=== PATIENT | male | born 1990 | race Caucasian/White ===

== ENCOUNTER 2017-03-25 10:53 | Emergency (ER) | payer SELFPAY ==
[~2017-03-25] VITALS: Ht 167.6 cm; Wt 67.0 kg
[2017-03-25 10:58] VITALS: BP 126/75; PULSE 106; RESP 18; TEMP 99.4; O2SAT 97
[2017-03-25] MEDS ORDERED: SODIUM CHLOR 0.9% 1000 ML INJ 1,000 ML IV ONE (11:24)
[2017-03-25 11:28] VITALS: RESP 18; O2SAT 97
[2017-03-25] MEDS ORDERED: SODIUM CHLORIDE 0.9% FLUSH 10 ML FLUSH IVF PRN (11:30)
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
[2017-03-25 11:55] LABS: AUTOMATED NEUTROPHIL # 5.8 TH/MM3 (1.8-7.7); BASOPHIL # 0.1 TH/MM3 (0-0.2); BASOPHIL % 0.6 % (0.0-2.0); EOSINOPHIL # 0.2 TH/MM3 (0-0.4); EOSINOPHIL % 1.7 % (0.0-4.0); HEMATOCRIT 37.4 % (39.0-51.0); HEMO FLAGS DIFF FINAL; LYMPH % 24.6 % (9.0-44.0); LYMPHOCYTE # 2.3 TH/MM3 (1.0-4.8); MEAN CELL VOLUME 84.9 FL (80.0-100.0); MEAN CORPUSCULAR HEMOGLOBIN 29.3 PG (27.0-34.0); MEAN CORPUSCULAR HGB CONC 34.5 % (32.0-36.0); MONO % 10.3 % (0.0-8.0); NEUT % 62.8 % (16.0-70.0); PLATELET COUNT 315 TH/MM3 (150-450); RED CELL DISTRIBUTION WIDTH 13.1 % (11.6-17.2); WHITE BLOOD COUNT 9.2 TH/MM3 (4.0-11.0)
[2017-03-25 12:11] LABS: ANION GAP 7 MEQ/L (5-15)
[2017-03-25 12:14] LABS: ACETAMINOPHEN LESS THAN 2.0 MCG/ML (10.0-30.0); ALKALINE PHOSPHATASE 103 U/L (45-117); ALT (GPT) 37 U/L (12-78); AST (GOT) 44 U/L (15-37); BLOOD UREA NITROGEN 17 MG/DL (7-18); CHLORIDE 105 MEQ/L (98-107); CREATINE KINASE 263 U/L (39-308); GLOMERULAR FILTRATION RATE 88 ML/MIN (>89); SODIUM (NA) 139 MEQ/L (136-145); TOTAL BILIRUBIN ADULT 0.5 MG/DL (0.2-1.0)
[2017-03-25 12:57] VITALS: BP 128/81; TEMP 98
--- NOTE | 2017-03-26 16:41 | EKG ---
Date Performed: 03/25/2017 Time Performed: 11:57:26 PTAGE: 26 years EKG: Sinus rhythm NONSPECIFIC ST & T-WAVE ABNORMALITY When compared to previous tracing, nonspecific ST-T changes Are now present in the anterior leads. BORDERLINE ECG PREVIOUS TRACING : 04/27/2016 16.30 DOCTOR: Brayden Malcolm Interpretating Date/Time 03/26/2017 16:39:59
== END 2017-03-25 12:57 | disposition home or self-care (01) ==
LOC: NEPC 10:53
DX: F19.10 Other psychoactive substance abuse, uncomplicated (principal); T40.601A Poisoning by unspecified narcotics, accidental (unintentional), initial encounter; R61 Generalized hyperhidrosis; R94.31 Abnormal electrocardiogram [ECG] [EKG]; F17.200 Nicotine dependence, unspecified, uncomplicated
CPT/HCPCS: 80053; 80307; 82550; 85025; 93005; 96360; 99284; J7030

== ENCOUNTER 2017-03-29 02:49 | Emergency (ER) | payer SELFPAY ==
[~2017-03-29] VITALS: Ht 167.6 cm; Wt 67.0 kg
[2017-03-29 02:52] VITALS: BP 131/73; PULSE 80; RESP 16; TEMP 98.7; O2SAT 98
--- NOTE | 2017-03-29 04:05 | PD ---
HPI Chief Complaint: Skin Problem Time Seen by Provider: 03:44 Travel History International Travel<30 days: No Contact w/Intl Traveler<30days: No Traveled to known affect area: No History of Present Illness HPI The patient is a 26-year-old male who presents emergency department for IV drug abuse. The patient states he injected heroin into the right antecubital fossa earlier today and then developed a red streak going up his vein, initially was slightly pruritic and painful, and resolved. The patient last used heroin 2 hours ago. He now notes he is asymptomatic. The patient is right-hand dominant. He denies any fever. Symptoms are mild, exacerbated by using heroin, and self alleviating. PFSH Past Medical History Medical History: Denies Significant Hx Hx Anticoagulant Therapy: No Cardiovascular Problems: No Chemotherapy: No Cerebrovascular Accident: No Diabetes: No Diminished Hearing: No Respiratory: No Past Surgical History Surgical History: No Previous Surgery Other Surgery: Yes (CYST REMOVAL ) Social History Alcohol Use: Yes (RARE) Tobacco Use: Yes (1PPD) Substance Use: Yes (COCAINE, DILAUDID, METH, HEROIN) Allergies-Medications (Allergen,Severity, Reaction): Coded Allergies: No Known Allergies (Unverified , 03/29/17) Reported Meds & Prescriptions Reported Meds & Active Scripts Active No Active Prescriptions or Reported Medications Review of Systems General / Constitutional: No: Fever Cardiovascular: No: Chest Pain or Discomfort Respiratory: No: Shortness of Breath Gastrointestinal: No: Nausea, Vomiting, Abdominal Pain Skin: Positive Other (as noted in the history of present illness) Psychiatric: Positive: Substance Abuse (IVDA with heroin) Physical Exam Narrative GENERAL: Awake, 26-year-old male who appears his stated age and is in no acute respiratory distress. SKIN: Focused skin assessment warm/dry. Multiple injection sites noted of the right anterior cubital fossa. No significant erythema noted. HEAD: Atraumatic. Normocephalic. MUSCULOSKELETAL: No obvious deformities. No clubbing. No cyanosis. No edema. Multiple injection sites noted of the right antecubital fossa, no significant erythema or palpable abscesses noted. NEUROLOGICAL: Awake and alert. No obvious cranial nerve deficits. Motor grossly within normal limits. Normal speech. PSYCHIATRIC: Appropriate mood and affect; insight and judgment normal. Data Data Last Documented VS Vital Signs Date Time Temp Pulse Resp B/P Pulse Ox O2 Delivery O2 Flow Rate FiO2 03/29/17 03:51 18 03/29/17 02:52 98.7 80 131/73 98 Room Air MDM Medical Decision Making Medical Screen Exam Complete: Yes Emergency Medical Condition: Yes Medical Record Reviewed: Yes Differential Diagnosis Differential diagnosis includes IVDA, polysubstance abuse, heroin reaction, reaction to unknown substance. Narrative Course The patient last injected 2 hours prior to arrival, his symptoms have resolved. The patient is advised to stop using IV drugs. Diagnosis Primary Impression: Polysubstance abuse Patient Instructions: General Instructions Additional Instructions: Stop using heroin. Monitor for signs of infection. Follow-up with your primary physician. Med/Other Pt SpecificInfo: No Change to Meds Scripts No Active Prescriptions or Reported Meds Disposition: 01 DISCHARGE HOME Condition: Stable Nicho Morocho MD March 29, 2017 04:05
== END 2017-03-29 04:54 | disposition home or self-care (01) ==
LOC: NEPC 02:49
DX: F19.10 Other psychoactive substance abuse, uncomplicated (principal); F17.200 Nicotine dependence, unspecified, uncomplicated
CPT/HCPCS: 99281

== ENCOUNTER 2017-04-30 12:43 | Inpatient (IN) | payer OTHER ==
[~2017-04-30] VITALS: Ht 175.3 cm; Wt 66.8 kg
[2017-04-30 13:46] VITALS: BP 132/78; PULSE 100; RESP 22; TEMP 98.3; O2SAT 98
[2017-04-30] MEDS ORDERED: SODIUM CHLORIDE 0.9% FLUSH 10 ML FLUSH IVF PRN ×2 (14:00→15:30)
[2017-04-30] MEDS ORDERED: SODIUM CHLOR 0.9% 1000 ML INJ 1,000 ML IV ONE ×2 (14:00→16:00)
[2017-04-30 14:18] LABS: AUTOMATED NEUTROPHIL # 14.8 TH/MM3 (1.8-7.7); BASOPHIL # 0.1 TH/MM3 (0-0.2); BASOPHIL % 0.4 % (0.0-2.0); EOSINOPHIL % 0.2 % (0.0-4.0); HEMATOCRIT 39.6 % (39.0-51.0); HEMO FLAGS DIFF FINAL; MEAN CELL VOLUME 84.9 FL (80.0-100.0); MEAN CORPUSCULAR HEMOGLOBIN 28.7 PG (27.0-34.0); MEAN CORPUSCULAR HGB CONC 33.9 % (32.0-36.0); MONO % 8.1 % (0.0-8.0); NEUT % 80.3 % (16.0-70.0); PLATELET COUNT 360 TH/MM3 (150-450); RED BLOOD COUNT 4.67 MIL/MM3 (4.50-5.90); WHITE BLOOD COUNT 18.4 TH/MM3 (4.0-11.0)
[2017-04-30 14:23] VITALS: O2SAT 98
[2017-04-30 14:24] LABS: PROTHROMBIN TIME - PATIENT 11.6 SEC (9.8-11.6)
[2017-04-30 14:31] LABS: ANION GAP 10 MEQ/L (5-15); AST (GOT) 48 U/L (15-37); BICARBONATE 22.6 MEQ/L (21.0-32.0); BLOOD UREA NITROGEN 21 MG/DL (7-18); CHLORIDE 109 MEQ/L (98-107); GLOMERULAR FILTRATION RATE 66 ML/MIN (>89); POTASSIUM 3.7 MEQ/L (3.5-5.1); SODIUM (NA) 142 MEQ/L (136-145)
[2017-04-30 14:35] LABS: ALKALINE PHOSPHATASE 110 U/L (45-117); ALT (GPT) 42 U/L (12-78)
--- NOTE | 2017-04-30 14:38 | PD ---
HPI Chief Complaint: Pain: Acute or Chronic Time Seen by Provider: 13:48 Travel History International Travel<30 days: No Contact w/Intl Traveler<30days: No Traveled to known affect area: No History of Present Illness HPI 26-year-old male presents with chest pain after injecting heroin, snorting crack and doing some lines of meth. He is currently under arrest. He denies other complaints but is a very poor historian to get history out of. He states that he injects every day. He states he did all the drugs he mentioned this morning. PFSH Past Medical History Hx Anticoagulant Therapy: No Cardiovascular Problems: No Chemotherapy: No Cerebrovascular Accident: No Diabetes: No Diminished Hearing: No Respiratory: No Past Surgical History Other Surgery: Yes (CYST REMOVAL ) Social History Alcohol Use: Yes (RARE) Tobacco Use: Yes (1PPD) Substance Use: Yes (COCAINE, DILAUDID, METH, HEROIN) Allergies-Medications (Allergen,Severity, Reaction): Coded Allergies: No Known Allergies (Unverified , 03/29/17) Reported Meds & Prescriptions Reported Meds & Active Scripts Active No Active Prescriptions or Reported Medications Review of Systems ROS Limitations: Poor Historian Except as stated in HPI: all other systems reviewed are Neg Physical Exam Exam Limitations: Poor Historian Narrative GENERAL: Well-nourished, well-developed patient. SKIN: Warm and dry. Multiple track camarena noted HEAD: Normocephalic and atraumatic. EYES: No injection or drainage. Dilated pupils equal bilaterally ENT: No nasal drainage noted. NECK: Supple, trachea midline. CARDIOVASCULAR: Regular rate and rhythm RESPIRATORY: Breath sounds equal bilaterally. No accessory muscle use. GASTROINTESTINAL: Abdomen soft, non-tender, nondistended. EXTREMITIES: No edema. NEUROLOGICAL: Awake. Moves all extremities. Normal speech. Data Data Last Documented VS Vital Signs Date Time Temp Pulse Resp B/P Pulse Ox O2 Delivery O2 Flow Rate FiO2 04/30/17 14:23 98 04/30/17 13:54 100 04/30/17 13:46 98.3 22 132/78 Orders Electrocardiogram (04/30/17 13:55) Complete Blood Count With Diff (04/30/17 13:55) Comprehensive Metabolic Panel (04/30/17 13:55) Prothrombin Time / Inr (Pt) (04/30/17 13:55) Act Partial Throm Time (Ptt) (04/30/17 13:55) Ua Includes Microscopic (04/30/17 13:55) Chest, Single Ap (04/30/17 13:55) Iv Access Insert/Monitor (04/30/17 13:55) Ecg Monitoring (04/30/17 13:55) Oximetry (04/30/17 13:55) Sodium Chloride 0.9% Flush (Ns Flush) (04/30/17 14:00) Drug Screen, Random Urine (04/30/17 13:55) Alcohol (Ethanol) (04/30/17 13:55) Lactic Acid Sepsis Protocol (04/30/17 13:55) Blood Culture (04/30/17 13:55) Sodium Chlor 0.9% 1000 Ml Inj (Ns 1000 M (04/30/17 14:00) Ckmb (Isoenzyme) Profile (04/30/17 15:30) Troponin I (04/30/17 15:30) Sodium Chloride 0.9% Flush (Ns Flush) (04/30/17 15:30) Diet Regular Basic (04/30/17 Dinner) Vital Signs (Adult) TREASURE.Q4H (04/30/17 15:51) Complete Blood Count With Diff (05/01/17 06:00) Basic Metabolic Panel (Bmp) (05/01/17 06:00) Sodium Chlor 0.9% 1000 Ml Inj (Ns 1000 M (04/30/17 16:00) Ondansetron Inj (Zofran Inj) (04/30/17 16:00) Acetaminophen (Tylenol) (04/30/17 16:00) Troponin I (04/30/17 21:00) Troponin I (05/01/17 03:00) Sodium Chlor 0.9% 1000 Ml Inj (Ns 1000 M (04/30/17 16:00) Vancomycin Inj (Vancomycin Inj) (04/30/17 16:00) Admit Order (Ed Use Only) (04/30/17 15:54) CKMB (04/30/17 14:00) CKMB% (04/30/17 14:00) Labs Laboratory Tests Test 04/30/17 14:00 White Blood Count 18.4 TH/MM3 Red Blood Count 4.67 MIL/MM3 Hemoglobin 13.4 GM/DL Hematocrit 39.6 % Mean Corpuscular Volume 84.9 FL Mean Corpuscular Hemoglobin 28.7 PG Mean Corpuscular Hemoglobin 33.9 % Concent Red Cell Distribution Width 13.0 % Platelet Count 360 TH/MM3 Mean Platelet Volume 7.4 FL Neutrophils (%) (Auto) 80.3 % Lymphocytes (%) (Auto) 11.0 % Monocytes (%) (Auto) 8.1 % Eosinophils (%) (Auto) 0.2 % Basophils (%) (Auto) 0.4 % Neutrophils # (Auto) 14.8 TH/MM3 Lymphocytes # (Auto) 2.0 TH/MM3 Monocytes # (Auto) 1.5 TH/MM3 Eosinophils # (Auto) 0.0 TH/MM3 Basophils # (Auto) 0.1 TH/MM3 CBC Comment DIFF FINAL Differential Comment Prothrombin Time 11.6 SEC Prothromb Time International 1.0 RATIO Ratio Activated Partial 25.0 SEC Thromboplast Time Sodium Level 142 MEQ/L Potassium Level 3.7 MEQ/L Chloride Level 109 MEQ/L Carbon Dioxide Level 22.6 MEQ/L Anion Gap 10 MEQ/L Blood Urea Nitrogen 21 MG/DL Creatinine 1.31 MG/DL Estimat Glomerular Filtration 66 ML/MIN Rate Random Glucose 98 MG/DL Lactic Acid Level 1.1 mmol/L Calcium Level 10.0 MG/DL Total Bilirubin 1.0 MG/DL Aspartate Amino Transf 48 U/L (AST/SGOT) Alanine Aminotransferase 42 U/L (ALT/SGPT) Alkaline Phosphatase 110 U/L Total Creatine Kinase 202 U/L Creatine Kinase MB 2.6 NG/ML Troponin I LESS THAN 0.02 NG/ML Total Protein 9.0 GM/DL Albumin 4.0 GM/DL Ethyl Alcohol Level LESS THAN 3 MG/DL MDM Medical Decision Making Medical Screen Exam Complete: Yes Emergency Medical Condition: Yes Medical Record Reviewed: Yes (past history confirmed) Interpretation(s) EKG is sinus rhythm at 100, no STEMI criteria CBC & BMP Diagram 04/30/17 14:00 Last 24 hours Impressions Chest X-Ray 04/30/17 3155 Signed Impressions: Service Date/Time: Wednesday, April 30, 2017 14:00 - CONCLUSION: No acute disease. Camden Koch MD Differential Diagnosis Endocarditis, vasospasm, musculoskeletal, gastritis... Narrative Course Will check blood work, chest x-ray and reevaluate Blood work shows elevated white count of 18 and considering history of IV drug abuse Will give dose of vancomycin and place in the hospital for further workup of endocarditis. Physician Communication Physician Communication dr kelley agrees to admit Diagnosis Primary Impression: Chest pain Qualified Code: R07.9 - Chest pain, unspecified type Additional Impression: Polysubstance abuse Admitting Information Admitting Physician Requests: Admit Scripts No Active Prescriptions or Reported Meds Susie Felipe MD Apr 30, 2017 14:38
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
[2017-04-30] MEDS ORDERED: ONDANSETRON HCL 4 MG/2 ML VIAL IV PUSH PRN (16:00)
[2017-04-30] MEDS ORDERED: ACETAMINOPHEN 325 MG TAB PO PRN (16:00)
[2017-04-30] MEDS ORDERED: VANCOMYCIN INJ 1,000 MG in SODIUM CHLOR 0.9% 250 ML INJ 250 ML IV ONE (16:00)
[2017-04-30 16:14] LABS: CREATINE KINASE 202 U/L (39-308)
[2017-04-30] MEDS ORDERED: Vancomycin Consult Pharmacy 1 EA OTHER SCH (16:15)
--- NOTE | 2017-04-30 16:16 | HHI.HP ---
[facility] No Primary Care Physician Admission Diagnosis chest pain Diagnoses: (1) Chest pain Diagnosis: Principal (2) SIRS (systemic inflammatory response syndrome) Diagnosis: Principal (3) Drug abuse Diagnosis: Principal Chief Complaint: chest pain Travel History International Travel<30 Days: No Contact w/Intl Traveler <30 Da: No Traveled to Known Affected Are: No History of Present Illness patient is a 26 y/o male who was brought to ER with chest pain. reportedly he injected heroin and snorted crack earlier and started to have some chest pain. he's currently under arrest. he was somewhat lethargic at the time of my evaluation although arousable. he denies any chest pain at this time. information was limited due to his mental condition. Review of Systems ROS Limitations: Intoxication, Poor Historian Cardiovascular: COMPLAINS OF: Chest pain Past Family Social History Past Medical History not known Past Surgical History could not be obtained. Reported Medications none reported. Allergies: Coded Allergies: No Known Allergies (Unverified , 03/29/17) Active Ordered Medications Current Medications Sodium Chloride 2 ml 2 ml UNSCH PRN IVF FLUSH AFTER USING IV ACCESS; Start at 14:00 Sodium Chloride (NS 1000 ml Inj) 1,000 ml @ 999 mls/hr BOLUS ONCE IV Last administered on 04/30/17t 14:13; Start 04/30/17 at 14:00; Stop 04/30/17 at 15:00 ; Status DC Sodium Chloride 2 ml 2 ml UNSCH PRN IVF FLUSH AFTER USING IV ACCESS; Start at 15:30 Sodium Chloride (NS 1000 ml Inj) 1,000 ml @ 100 mls/hr Q10H IV ; Start at 16:00; Status UNV Ondansetron HCl (Zofran Inj) 4 mg Q8HR PRN IV PUSH NAUSEA; Start 04/30/17 at 16 :00; Status UNV Acetaminophen 650 mg 650 mg Q4H PRN PO FEVER/PAIN; Start 04/30/17 at 16:00; Status UNV Sodium Chloride 1,000 ml @ 999 mls/hr BOLUS ONCE IV ; Start 04/30/17 at 16:00 ; Stop 04/30/17 at 17:00 Vancomycin HCl/ Sodium Chloride (Vancomycin Inj/ NS 250 ml Inj) 250 ml @ 250 mls/hr ONCE ONCE IV ; Start 04/30/17 at 16:00; Stop 04/30/17 at 16:59 Family History could not be obtained. Social History smokes a pack a day- uses IV drugs. Physical Exam Vital Signs Vital Signs Date Time Temp Pulse Resp B/P Pulse Ox O2 Delivery O2 Flow Rate FiO2 04/30/17 14:23 98 04/30/17 13:54 100 04/30/17 13:46 98.3 100 22 132/78 98 Physical Exam GENERAL: This is a well-nourished, well-developed patient, in no apparent distress. SKIN: No rashes, ecchymoses or lesions. Cool and dry. HEAD: Atraumatic. Normocephalic. No temporal or scalp tenderness. EYES: Pupils equal round and reactive. Extraocular motions intact. No scleral icterus. No injection or drainage. ENT: Nose without bleeding, purulent drainage or septal hematoma. Throat without erythema, tonsillar hypertrophy or exudate. Uvula midline. Airway patent. NECK: Trachea midline. No JVD or lymphadenopathy. Supple, nontender, no meningeal signs. CARDIOVASCULAR: Regular rate and rhythm without murmurs, gallops, or rubs. RESPIRATORY: Clear to auscultation. Breath sounds equal bilaterally. No wheezes , rales, or rhonchi. GASTROINTESTINAL: Abdomen soft, non-tender, nondistended. No hepato-splenomegaly , or palpable masses. No guarding. MUSCULOSKELETAL: Extremities without clubbing, cyanosis, or edema. No joint tenderness, effusion, or edema noted. No calf tenderness. Negative Homans sign bilaterally. NEUROLOGICAL: lethargic- however arousable. Laboratory Laboratory Tests Test 04/30/17 14:00 White Blood Count 18.4 Red Blood Count 4.67 Hemoglobin 13.4 Hematocrit 39.6 Mean Corpuscular Volume 84.9 Mean Corpuscular Hemoglobin 28.7 Mean Corpuscular Hemoglobin 33.9 Concent Red Cell Distribution Width 13.0 Platelet Count 360 Mean Platelet Volume 7.4 Neutrophils (%) (Auto) 80.3 Lymphocytes (%) (Auto) 11.0 Monocytes (%) (Auto) 8.1 Eosinophils (%) (Auto) 0.2 Basophils (%) (Auto) 0.4 Neutrophils # (Auto) 14.8 Lymphocytes # (Auto) 2.0 Monocytes # (Auto) 1.5 Eosinophils # (Auto) 0.0 Basophils # (Auto) 0.1 CBC Comment DIFF FINAL Differential Comment Prothrombin Time 11.6 Prothromb Time International 1.0 Ratio Activated Partial 25.0 Thromboplast Time Sodium Level 142 Potassium Level 3.7 Chloride Level 109 Carbon Dioxide Level 22.6 Anion Gap 10 Blood Urea Nitrogen 21 Creatinine 1.31 Estimat Glomerular Filtration 66 Rate Random Glucose 98 Lactic Acid Level 1.1 Calcium Level 10.0 Total Bilirubin 1.0 Aspartate Amino Transf 48 (AST/SGOT) Alanine Aminotransferase 42 (ALT/SGPT) Alkaline Phosphatase 110 Total Protein 9.0 Albumin 4.0 Ethyl Alcohol Level LESS THAN 3 Date/Time Procedure Status Source Growth 04/30/17 14:00 Aerobic Blood Culture Received Blood Peripheral Pending 04/30/17 14:00 Anaerobic Blood Culture Received Blood Peripheral Pending Result Diagram: 04/30/17 1400 04/30/17 1400 Imaging Last Impressions Chest X-Ray 04/30/17 1355 Signed Impressions: Service Date/Time: Sunday, April 30, 2017 14:00 - CONCLUSION: No acute disease. Camden Koch MD CXR; sinus rhythm with no acute ST-T changes Assessment and Plan Assessment and Plan A/P - chest pain with drug abuse will trend the cardiac enzymes- place on telemetry -SIRS with history of IV drug abuse start empiric broad spectrum IV antibiotics in light of IV drug abuse will follow the blood cultures and check ESR. -acute kidney injury; start IV fluid and monitor the renal function; BMP in am Discussed Condition With ER physician and the patient. Physician Certification 2 Midnight Certification Type: Admission for Inpatient Services Order for Inpatient Services The services are ordered in accordance with Medicare regulations or non- Medicare payer requirements, as applicable. In the case of services not specified as inpatient-only, they are appropriately provided as inpatient services in accordance with the 2-midnight benchmark. Estimated LOS (days): 2 days is the estimated time the patient will need to remain in the hospital, assuming treatment plan goals are met and no additional complications. Post-Hospital Plan: Not yet determined Problem Qualifiers (1) Chest pain: Qualified Code: R07.9 - Chest pain, unspecified type Carlos Alejo MD Apr 30, 2017 16:16
[2017-04-30 16:37] LABS: CKMB 2.6 NG/ML (0.5-3.6)
[2017-04-30] MEDS: SODIUM CHLOR 0.9% 1000 ML INJ 1,000 ML IV SCH (17:51)
--- NOTE | 2017-04-30 17:58 | EKG ---
Date Performed: 04/30/2017 Time Performed: 14:01:53 PTAGE: 26 years EKG: Sinus rhythm MINIMAL VOLTAGE CRITERIA FOR LVH, CONSIDER NORMAL VARIANT NONSPECIFIC T-WAVE ABNORMALITY BORDERLINE ECG INTERPRETATION BASED ON A DEFAULT AGE OF 40 YEARS NO PREVIOUS TRACING DOCTOR: Matteo Rizo Interpretating Date/Time 04/30/2017 17:56:26
[2017-04-30] MEDS: PIPERACIL-TAZO 3.375 GM PREMIX 50 ML IV SCH (18:03)
[2017-04-30 18:48] VITALS: BP 132/75; PULSE 58; RESP 20
[2017-04-30 19:07] VITALS: BP 105/61; PULSE 66; RESP 18; O2SAT 100
[2017-04-30 21:18] VITALS: BP 124/62; PULSE 68; RESP 16; TEMP 98.1; O2SAT 95
[2017-04-30 23:01] LABS: AMPHETAMINE, URINE POS (NEG); BARBITURATES, URINE NEG (NEG); COCAINE, URINE POS (NEG)
[2017-04-30 23:08] LABS: BACTERIA, URINE RARE /hpf; BLOOD, URINE NEG (NEG); GLUCOSE,URINE NEG (NEG); HYALINE CAST, URINE 11 /lpf (RARE); KETONE, URINE NEG (NEG); MUCUS URINE FEW /lpf (OCC); NITRITE,URINE NEG (NEG); PH, URINE 6.5 (5.0-8.5); SQUAMOUS EPITHELIAL CELL URINE <1 /hpf (0-5); URINE COLOR YELLOW (YELLW/STRAW)
[2017-05-01] VITALS: BP 122/68; PULSE 63; RESP 18; TEMP 98.4; O2SAT 98
[2017-05-01] MEDS: SODIUM CHLOR 0.9% 1000 ML INJ 1,000 ML IV SCH ×3 (02:00→22:00)
[2017-05-01] MEDS: PIPERACIL-TAZO 3.375 GM PREMIX 50 ML IV SCH ×3 (02:38→18:11)
[2017-05-01 03:22] LABS: AUTOMATED NEUTROPHIL # 9.4 TH/MM3 (1.8-7.7); BASOPHIL % 0.3 % (0.0-2.0); EOSINOPHIL # 0.2 TH/MM3 (0-0.4); EOSINOPHIL % 1.5 % (0.0-4.0); HEMATOCRIT 35.2 % (39.0-51.0); HEMO FLAGS DIFF FINAL; LYMPHOCYTE # 1.7 TH/MM3 (1.0-4.8); MEAN CELL VOLUME 86.6 FL (80.0-100.0); MEAN CORPUSCULAR HEMOGLOBIN 28.6 PG (27.0-34.0); MEAN CORPUSCULAR HGB CONC 33.1 % (32.0-36.0); MONO % 11.5 % (0.0-8.0); NEUT % 73.7 % (16.0-70.0); PLATELET COUNT 268 TH/MM3 (150-450); RED BLOOD COUNT 4.07 MIL/MM3 (4.50-5.90); WHITE BLOOD COUNT 12.8 TH/MM3 (4.0-11.0)
[2017-05-01 03:27] LABS: ANION GAP 6 MEQ/L (5-15); BICARBONATE 26.2 MEQ/L (21.0-32.0); BLOOD UREA NITROGEN 15 MG/DL (7-18); CHLORIDE 110 MEQ/L (98-107); GLOMERULAR FILTRATION RATE 108 ML/MIN (>89); POTASSIUM 3.7 MEQ/L (3.5-5.1); SODIUM (NA) 142 MEQ/L (136-145)
[2017-05-01 04:00] VITALS: BP 120/74; PULSE 58; RESP 16; TEMP 98; O2SAT 98
[2017-05-01] MEDS: VANCOMYCIN 1,000 MG/NS 250 ML IV SCH ×4 (04:33→16:59)
[2017-05-01 08:00] VITALS: BP 130/60; PULSE 72; RESP 20; TEMP 98.3; O2SAT 96
--- NOTE | 2017-05-01 11:08 | HHI.PR ---
Subjective Remarks awake and alert today. looks a bit anxious. complaining of some chest pressure. afebrile. Objective Vitals Vital Signs Date Time Temp Pulse Resp B/P Pulse Ox O2 Delivery O2 Flow Rate FiO2 05/01/17 08:00 98.3 72 20 130/60 96 05/01/17 04:00 98.0 58 16 120/74 98 05/01/17 00:00 98.4 63 18 122/68 98 05/01/17 00:00 Room Air 04/30/17 21:18 98.1 68 16 124/62 95 04/30/17 20:00 Room Air 04/30/17 19:07 66 18 105/61 100 Room Air 04/30/17 18:48 58 20 132/75 04/30/17 14:23 98 04/30/17 13:54 100 04/30/17 13:46 98.3 100 22 132/78 98 I/O 04/30/17 04/30/17 04/30/17 05/01/17 05/01/17 05/01/17 07:00 15:00 23:00 07:00 15:00 23:00 Intake Total 1049 ml 883 ml Output Total 450 ml 300 ml Balance 599 ml 583 ml Intake Oral 600 ml 360 ml IV Total 449 ml 523 ml Output Urine Total 450 ml 300 ml # Voids 1 # Bowel Movements 0 Result Diagram: 05/01/17 0242 05/01/17 0242 Imaging Last Impressions Chest X-Ray 04/30/17 1355 Signed Impressions: Service Date/Time: Sunday, April 30, 2017 14:00 - CONCLUSION: No acute disease. Camden Koch MD Objective Remarks GENERAL: This is a well-nourished, well-developed patient, in no apparent distress. CARDIOVASCULAR: Regular rate and regular rhythm without murmurs, gallops, or rubs. RESPIRATORY: Clear to auscultation. Breath sounds equal bilaterally. No wheezes , rales, or rhonchi. GASTROINTESTINAL: Abdomen soft, non-tender, nondistended. Normal, active bowel sounds MUSCULOSKELETAL: Extremities without clubbing, cyanosis, or edema. NEURO: Alert & Oriented x4 to person, place, time, situation. Moves all ext x4 Procedures none Medications and IVs Current Medications Sodium Chloride 2 ml 2 ml UNSCH PRN IVF FLUSH AFTER USING IV ACCESS; Start at 14:00 Sodium Chloride (NS 1000 ml Inj) 1,000 ml @ 999 mls/hr BOLUS ONCE IV Last administered on 04/30/17 14:13; Start 04/30/17 at 14:00; Stop 04/30/17 at 15:00 ; Status DC Sodium Chloride 2 ml 2 ml UNSCH PRN IVF FLUSH AFTER USING IV ACCESS; Start at 15:30 Sodium Chloride (NS 1000 ml Inj) 1,000 ml @ 100 mls/hr Q10H IV Last administered on 04/30/17 17:51; Start 04/30/17 at 16:00 Ondansetron HCl (Zofran Inj) 4 mg Q8HR PRN IV PUSH NAUSEA; Start 04/30/17 at 16 :00 Acetaminophen 650 mg 650 mg Q4H PRN PO FEVER/PAIN 1-2; Start 04/30/17 at 16:00 Sodium Chloride 1,000 ml @ 999 mls/hr BOLUS ONCE IV Last administered on 04/30 16:14; Start 04/30/17 at 16:00; Stop 04/30/17 at 17:00; Status DC Vancomycin HCl 1000 mg/Sodium Chloride 250 ml @ 250 mls/hr ONCE ONCE IV Last administered on 04/30/17 16:14; Start 04/30/17 at 16:00; Stop 04/30/17 at 16:59 ; Status DC Pharmacy Profile Note 0 ml @ 0 mls/hr UNSCH OTHER ; Start 04/30/17 at 16:15 Piperacillin Sod/ Tazobactam Sod 50 ml @ 100 mls/hr Q8H IV Last administered on 05/01/17 09:35; Start 04/30/17 at 18:00 Vancomycin HCl/ Sodium Chloride (Vancomycin Inj/ NS 250 ml Inj) 250 ml @ 250 mls/hr Q12H IV Last administered on 05/01/17 04:33; Start 05/01/17 at 04:00 Miscellaneous Information SPECIFIC LAB TO BE ... ONCE ONCE .XX ; Start at 03:45; Stop 05/02/17 at 03:46 A/P Assessment and Plan A/P - chest pain with drug abuse cardiac enzymes negative -SIRS with history of IV drug abuse/ bacteremia with gram positive cocci continue empiric broad spectrum IV antibiotics ID consulted. -acute kidney injury; resolved. -polysubstance abuse- will watch for withdrawal- consider adding Clonidine Carlos Alejo MD May 01, 2017 11:08
[2017-05-01 12:00] VITALS: BP 120/60; PULSE 80; RESP 20; TEMP 98.3; O2SAT 100
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
[2017-05-01 16:00] VITALS: BP 125/57; PULSE 82; RESP 20; TEMP 97.9; O2SAT 100
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
[2017-05-01 20:00] VITALS: BP 129/63; PULSE 68; RESP 18; TEMP 97.7; O2SAT 99
[2017-05-01] MEDS ORDERED: DIATRIZOATE MEGLUM/DIATRIZOATE SOD 9 ML CUP PO ONE (20:30)
[2017-05-02] VITALS (8 sets, daily range): BP systolic 105–124; BP diastolic 56–65; PULSE 50–87; RESP 16–18; TEMP 97.6–98.8; O2SAT 97–100
[2017-05-02] MEDS: PIPERACIL-TAZO 3.375 GM PREMIX 50 ML IV SCH ×3 (01:12→17:32)
[2017-05-02] MEDS ORDERED: PHARMACY ORDERED LAB ONE (03:45)
[2017-05-02] MEDS: VANCOMYCIN 1,000 MG/NS 250 ML IV SCH ×2 (04:00)
[2017-05-02] MEDS ORDERED: DIATRIZOATE MEGLUM/DIATRIZOATE SOD 9 ML CUP PO ONE (08:30)
[2017-05-02] MEDS: SODIUM CHLOR 0.9% 1000 ML INJ 1,000 ML IV SCH (08:30)
[2017-05-02] MEDS ORDERED: IOHEXOL 350 MG/ML 10 ML VIAL (for RAD DIAG) IV ONE (10:59)
--- NOTE | 2017-05-02 11:03 | HHI.PR ---
Subjective Remarks in no acute distress. no fever. has mild pain to the right knee. Objective Vitals Vital Signs Date Time Temp Pulse Resp B/P Pulse Ox O2 Delivery O2 Flow Rate FiO2 05/02/17 08:00 97.9 73 18 118/63 98 05/02/17 08:00 50 05/02/17 07:15 Room Air 05/02/17 04:00 97.6 69 16 105/59 97 05/02/17 00:00 97.7 65 16 124/56 97 05/01/17 20:00 68 05/01/17 20:00 97.7 68 18 129/63 99 05/01/17 20:00 Room Air 05/01/17 16:00 97.9 82 20 125/57 100 05/01/17 16:00 Room Air 05/01/17 12:00 Room Air 05/01/17 12:00 98.3 80 20 120/60 100 I/O 05/01/17 05/01/17 05/01/17 05/02/17 05/02/17 05/02/17 07:00 15:00 23:00 07:00 15:00 23:00 Intake Total 883 ml 1786 ml 240 ml 1151 ml Output Total 300 ml 1100 ml 250 ml 800 ml Balance 583 ml 686 ml -10 ml 351 ml Intake Oral 360 ml 840 ml 240 ml 240 ml IV Total 523 ml 946 ml 911 ml Output Urine Total 300 ml 1100 ml 250 ml 800 ml # Voids 1 # Bowel Movements 0 0 0 Result Diagram: 05/01/17 0242 05/01/17 0242 Imaging Last Impressions Knee X-Ray 05/01/17 0000 Signed Impressions: Service Date/Time: Monday, May 01, 2017 15:55 - CONCLUSION: Mild effusion. Fredsi Watson MD Chest X-Ray 04/30/17 1355 Signed Impressions: Service Date/Time: Sunday, April 30, 2017 14:00 - CONCLUSION: No acute disease. Camden Koch MD Objective Remarks GENERAL: This is a well-nourished, well-developed patient, in no apparent distress. CARDIOVASCULAR: Regular rate and regular rhythm without murmurs, gallops, or rubs. RESPIRATORY: Clear to auscultation. Breath sounds equal bilaterally. No wheezes , rales, or rhonchi. GASTROINTESTINAL: Abdomen soft, non-tender, nondistended. Normal, active bowel sounds MUSCULOSKELETAL: mild swelling of the right knee NEURO: Alert & Oriented x4 to person, place, time, situation. Moves all ext x4 Procedures none Medications and IVs Current Medications Sodium Chloride 2 ml 2 ml UNSCH PRN IVF FLUSH AFTER USING IV ACCESS; Start at 14:00 Sodium Chloride (NS 1000 ml Inj) 1,000 ml @ 999 mls/hr BOLUS ONCE IV Last administered on 04/30/17 14:13; Start 04/30/17 at 14:00; Stop 04/30/17 at 15:00 ; Status DC Sodium Chloride 2 ml 2 ml UNSCH PRN IVF FLUSH AFTER USING IV ACCESS; Start at 15:30 Sodium Chloride (NS 1000 ml Inj) 1,000 ml @ 100 mls/hr Q10H IV Last administered on 05/02/17 08:30; Start 04/30/17 at 16:00 Ondansetron HCl (Zofran Inj) 4 mg Q8HR PRN IV PUSH NAUSEA; Start 04/30/17 at 16 :00 Acetaminophen 650 mg 650 mg Q4H PRN PO FEVER/PAIN 1-2; Start 04/30/17 at 16:00 Sodium Chloride 1,000 ml @ 999 mls/hr BOLUS ONCE IV Last administered on 04/30 16:14; Start 04/30/17 at 16:00; Stop 04/30/17 at 17:00; Status DC Vancomycin HCl 1000 mg/Sodium Chloride 250 ml @ 250 mls/hr ONCE ONCE IV Last administered on 04/30/17 16:14; Start 04/30/17 at 16:00; Stop 04/30/17 at 16:59 ; Status DC Pharmacy Profile Note 0 ml @ 0 mls/hr UNSCH OTHER ; Start 04/30/17 at 16:15 Piperacillin Sod/ Tazobactam Sod 50 ml @ 100 mls/hr Q8H IV Last administered on 05/02/17 08:34; Start 04/30/17 at 18:00 Vancomycin HCl/ Sodium Chloride (Vancomycin Inj/ NS 250 ml Inj) 250 ml @ 250 mls/hr Q12H IV Last administered on 05/02/17 04:00; Start 05/01/17 at 04:00 Miscellaneous Information SPECIFIC LAB TO BE ... ONCE ONCE .XX Last administered on 05/02/17 03:45; Start 05/02/17 at 03:45; Stop 05/02/17 at 03:46; Status DC Diatrizoate Meglum/ Diatrizoate Sod ( Gastroview Liq) 18 ml ONCE ONCE PO ; Start 05/01/17 at 20:30; Stop 05/01/17 at 20:31; Status DC Diatrizoate Meglum/ Diatrizoate Sod ( Gastroview Liq) 18 ml ONCE ONCE PO Last administered on 05/02/17 08:31; Start 05/02/17 at 08:30; Stop 05/02/17 at 08: 31; Status DC A/P Assessment and Plan A/P -SIRS with history of IV drug abuse/ bacteremia with gram positive cocci continue empiric broad spectrum IV antibiotics ID consult appreciated. will check CT chest/ abdomen/ echo. will follow the repeated blood cultures. HIV/ hepatitis panel pending. -acute kidney injury; resolved. -polysubstance abuse- will watch for withdrawal- Carlos Alejo MD May 02, 2017 11:03
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
--- NOTE | 2017-05-02 11:25 | RADRPT ---
EXAM DATE/TIME: 05/02/2017 10:32 [facility] COMPARISON: CHEST SINGLE AP, April 30, 2017, 14:00. INDICATIONS : Shortness of breath. IV CONTRAST: 97 cc Omnipaque 350 (iohexol) IV ; Cumulative dose for multiple exams. RADIATION DOSE: 5.1 CTDIvol (mGy) ; Combined studies MEDICAL HISTORY : None SURGICAL HISTORY : cyst removal ENCOUNTER: Initial ACUITY: 1 day PAIN SCALE: 0/10 LOCATION: Bilateral chest TECHNIQUE: Volumetric scanning of the chest was performed. Using automated exposure control and adjustment of t he mA and/or kV according to patient size, radiation dose was kept as low as reasonably achievable to obtain optimal diagnostic quality images. DICOM format image data is available electronically for review and comparison. FINDINGS: There is a tiny noncalcified nodule in the left upper lobe measuring 3.1 mm. 3.1 mm left lower lobe n odule on image 48. Noncalcified right lower lobe 3 mm nodule on image 44. Pleural-based right lower l obe nodule measuring 4.3 mm on image 43. There are 2 nodules in the right middle lobe lateral segment on image 43 and 42 measuring 3.8 mm. Right upper lobe noncalcified nodule measuring 4 mm on image 37 and a right lower lobe 3 mm nodule is 37. There is no adenopathy. No pleural or pericardial effusion s are seen. No aneurysm. CONCLUSION: 1. Scattered noncalcified lung nodules. [address] chest recommended. Desmond Walker MD on May 02, 2017 at 11:20 Board Certified Radiologist. This report was verified electronically.
[2017-05-02] MEDS: VANCOMYCIN INJ 1,250 MG in SODIUM CHLOR 0.9% 250 ML INJ 250 ML IV SCH ×2 (15:09→21:56)
[2017-05-03] VITALS (8 sets, daily range): BP systolic 101–125; BP diastolic 59–68; PULSE 54–87; RESP 16–20; TEMP 97.9–98.5; O2SAT 97–100
[2017-05-03] MEDS: SODIUM CHLOR 0.9% 1000 ML INJ 1,000 ML IV SCH ×2 (00:56→14:00)
[2017-05-03] MEDS: PIPERACIL-TAZO 3.375 GM PREMIX 50 ML IV SCH ×3 (00:56→18:11)
[2017-05-03] MEDS: VANCOMYCIN INJ 1,250 MG in SODIUM CHLOR 0.9% 250 ML INJ 250 ML IV SCH ×2 (06:40→14:49)
--- NOTE | 2017-05-03 12:02 | HHI.PR ---
Subjective Remarks resting comfortably with no distress. has on and off epigastric pain. no fever. Objective Vitals Vital Signs Date Time Temp Pulse Resp B/P Pulse Ox O2 Delivery O2 Flow Rate FiO2 05/03/17 08:00 98.5 72 20 123/63 99 05/03/17 04:15 98.0 54 16 110/63 98 05/02/17 23:55 98.5 56 16 117/62 98 05/02/17 21:56 Room Air 05/02/17 20:18 87 05/02/17 19:55 98.8 60 16 116/65 98 05/02/17 16:00 98.2 77 18 114/56 100 05/02/17 12:00 98.1 79 18 115/56 100 I/O 05/02/17 05/02/17 05/02/17 05/03/17 05/03/17 05/03/17 07:00 15:00 23:00 07:00 15:00 23:00 Intake Total 1151 ml 1984 ml 360 ml 360 ml Output Total 800 ml 1300 ml 375 ml 1150 ml Balance 351 ml 684 ml -15 ml -790 ml Intake Oral 240 ml 960 ml 360 ml 360 ml IV Total 911 ml 1024 ml Output Urine Total 800 ml 1300 ml 375 ml 1150 ml # Bowel Movements 0 0 0 Result Diagram: 05/01/17 0242 05/03/17 0532 Imaging Last Impressions Chest CT 05/02/17 0000 Signed Impressions: Service Date/Time: Tuesday, May 02, 2017 10:32 - CONCLUSION: 1. Scattered noncalcified lung nodules. [address] chest recommended. Desmond Walker MD Abdomen/Pelvis CT 05/02/17 0000 Signed Impressions: Service Date/Time: Tuesday, May 02, 2017 10:32 - CONCLUSION: No acute disease. Desmond Walker MD Knee X-Ray 05/01/17 0000 Signed Impressions: Service Date/Time: Monday, May 01, 2017 15:55 - CONCLUSION: Mild effusion. Fredis Watson MD Chest X-Ray 04/30/17 1355 Signed Impressions: Service Date/Time: Sunday, April 30, 2017 14:00 - CONCLUSION: No acute disease. Camden Koch MD Objective Remarks GENERAL: This is a well-nourished, well-developed patient, in no apparent distress. CARDIOVASCULAR: Regular rate and regular rhythm without murmurs, gallops, or rubs. RESPIRATORY: Clear to auscultation. Breath sounds equal bilaterally. No wheezes , rales, or rhonchi. GASTROINTESTINAL: Abdomen soft, non-tender, nondistended. Normal, active bowel sounds MUSCULOSKELETAL: mild swelling of the right knee NEURO: Alert & Oriented x4 to person, place, time, situation. Moves all ext x4 Procedures none Medications and IVs Current Medications Sodium Chloride 2 ml 2 ml UNSCH PRN IVF FLUSH AFTER USING IV ACCESS; Start at 14:00 Sodium Chloride (NS 1000 ml Inj) 1,000 ml @ 999 mls/hr BOLUS ONCE IV Last administered on 04/30/17 14:13; Start 04/30/17 at 14:00; Stop 04/30/17 at 15:00 ; Status DC Sodium Chloride 2 ml 2 ml UNSCH PRN IVF FLUSH AFTER USING IV ACCESS; Start at 15:30 Sodium Chloride (NS 1000 ml Inj) 1,000 ml @ 100 mls/hr Q10H IV Last administered on 05/03/17 00:56; Start 04/30/17 at 16:00 Ondansetron HCl (Zofran Inj) 4 mg Q8HR PRN IV PUSH NAUSEA; Start 04/30/17 at 16 :00 Acetaminophen 650 mg 650 mg Q4H PRN PO FEVER/PAIN 1-2; Start 04/30/17 at 16:00 Sodium Chloride 1,000 ml @ 999 mls/hr BOLUS ONCE IV Last administered on 04/30 16:14; Start 04/30/17 at 16:00; Stop 04/30/17 at 17:00; Status DC Vancomycin HCl 1000 mg/Sodium Chloride 250 ml @ 250 mls/hr ONCE ONCE IV Last administered on 04/30/17 16:14; Start 04/30/17 at 16:00; Stop 04/30/17 at 16:59 ; Status DC Pharmacy Profile Note 0 ml @ 0 mls/hr UNSCH OTHER ; Start 04/30/17 at 16:15 Piperacillin Sod/ Tazobactam Sod 50 ml @ 100 mls/hr Q8H IV Last administered on 05/03/17 10:37; Start 04/30/17 at 18:00 Vancomycin HCl/ Sodium Chloride (Vancomycin Inj/ NS 250 ml Inj) 250 ml @ 250 mls/hr Q12H IV Last administered on 05/02/17 04:00; Start 05/01/17 at 04:00; Stop 05/02/17 at 13:16; Status DC Miscellaneous Information SPECIFIC LAB TO BE SINDHU... ONCE ONCE .XX Last administered on 05/02/17 03:45; Start 05/02/17 at 03:45; Stop 05/02/17 at 03:46; Status DC Diatrizoate Meglum/ Diatrizoate Sod ( Gastroview Liq) 18 ml ONCE ONCE PO ; Start 05/01/17 at 20:30; Stop 05/01/17 at 20:31; Status DC Diatrizoate Meglum/ Diatrizoate Sod ( Gastroview Liq) 18 ml ONCE ONCE PO Last administered on 05/02/17 08:31; Start 05/02/17 at 08:30; Stop 05/02/17 at 08: 31; Status DC Iohexol 97 ml 97 ml STK-MED ONCE IV Last administered on 05/02/17 10:59; Start 05/02/17 at 10:59; Stop 05/02/17 at 11:00; Status DC Vancomycin HCl/ Sodium Chloride (Vancomycin Inj/ NS 250 ml Inj) 262.5 ml @ 250 mls/hr Q8H IV Last administered on 05/03/17 06:40; Start 05/02/17 at 15:00 Miscellaneous Information SPECIFIC LAB TO BE SINDHU... ONCE ONCE .XX ; Start at 14:45; Stop 05/03/17 at 14:46 A/P Assessment and Plan A/P -SIRS with history of IV drug abuse/ bacteremia with gram positive cocci CT abdomen with no acute abnormality/ CT chest with lung nodules repeated blood cultures from 05/01 negative so far. HIV antibody negative. echo pending. continue empiric broad spectrum IV antibiotics ID consult appreciated. -hepatitis C ; f/u as outpatient -acute kidney injury; resolved. -polysubstance abuse- will watch for withdrawal- -lung nodules; f/u as outpatient. Carlos Alejo MD May 03, 2017 12:02
[2017-05-03] MEDS ORDERED: PHARMACY ORDERED LAB ONE (14:45)
--- NOTE | 2017-05-03 16:20 | HHI.IDPN ---
Subjective Subjective Remarks is a 26 y/o CM with PMHx of Endocarditis treated at [facility] s/p 6 weeks of IV antibiotics approx 1 year back. He reports necrotizing pneumonia and septic large cavitatory lesions during that admission. Patient reports ongoing use of IV heroin, cocaine and some other synthetic drugs. Patient is under arrest while in the hospital for unknown reasons. Patient reports no known history of HIV and hepatitis. Patient reports chills, night sweats off an on. Patient reports chest pain and this was the reason why he presented to the hospital. At the time of my evaluation, patient is on regular floor, in shackles, alert oriented x 3, non focal. UO good. Able to provide history but ? reliability. Blood cultures drawn on admission positive for gram positive bacteremia. ID consulted for evaluation and Mment of sepsis, Gram positive bacteremia. Overnight events reviewed. No fever No Rash No diarrhea Antibiotics Zosyn IV Vancomycin IV Lines Line sites with no evidence of infection. Past Medical History Reviewed. Allergies: Coded Allergies: No Known Allergies (Unverified , 03/29/17) Objective . Vital Signs Date Time Temp Pulse Resp B/P Pulse Ox O2 Delivery O2 Flow Rate FiO2 05/03/17 12:00 98.0 64 20 125/68 100 05/03/17 08:00 98.5 72 20 123/63 99 05/03/17 04:15 98.0 54 16 110/63 98 05/02/17 23:55 98.5 56 16 117/62 98 05/02/17 21:56 Room Air 05/02/17 20:18 87 05/02/17 19:55 98.8 60 16 116/65 98 05/02/17 05/02/17 05/03/17 15:00 23:00 07:00 Intake Total 1984 ml 360 ml 360 ml Output Total 1300 ml 375 ml 1150 ml Balance 684 ml -15 ml -790 ml Intake Oral 960 ml 360 ml 360 ml IV Total 1024 ml Output Urine Total 1300 ml 375 ml 1150 ml # Bowel Movements 0 0 . Laboratory Tests Test 05/03/17 05:32 Creatinine 0.78 MG/DL Estimat Glomerular Filtration 119 ML/MIN Rate Microbiology Date/Time Procedure Status Source Growth 05/01/17 17:36 Aerobic Blood Culture - Preliminary Resulted Blood Peripheral NO GROWTH IN 2 DAYS 05/01/17 17:36 Anaerobic Blood Culture - Preliminary Resulted Blood Peripheral NO GROWTH IN 2 DAYS 05/01/17 17:50 Aerobic Blood Culture - Preliminary Resulted Blood Peripheral NO GROWTH IN 2 DAYS 05/01/17 17:50 Anaerobic Blood Culture - Preliminary Resulted Blood Peripheral NO GROWTH IN 2 DAYS Imaging Last Impressions Chest CT 05/02/17 0000 Signed Impressions: Service Date/Time: Tuesday, May 02, 2017 10:32 - CONCLUSION: 1. Scattered noncalcified lung nodules. [address] chest recommended. Desmond Walker MD Abdomen/Pelvis CT 05/02/17 0000 Signed Impressions: Service Date/Time: Tuesday, May 02, 2017 10:32 - CONCLUSION: No acute disease. Desmond Walker MD Knee X-Ray 05/01/17 0000 Signed Impressions: Service Date/Time: Monday, May 01, 2017 15:55 - CONCLUSION: Mild effusion. Fredis Watson MD Chest X-Ray 04/30/17 1355 Signed Impressions: Service Date/Time: Sunday, April 30, 2017 14:00 - CONCLUSION: No acute disease. Camden Koch MD Physical Exam GENERAL: This is a well-nourished, well-developed patient, in no apparent distress. SKIN: No rashes, ecchymoses or lesions. Cool and dry. HEAD: Atraumatic. Normocephalic. No temporal or scalp tenderness. EYES: Pupils equal round and reactive. Extraocular motions intact. No scleral icterus. No injection or drainage. ENT: Nose without bleeding, purulent drainage or septal hematoma. Throat without erythema, tonsillar hypertrophy or exudate. Uvula midline. Airway patent. NECK: Trachea midline. Supple, nontender, no meningeal signs. CARDIOVASCULAR: RRR. RESPIRATORY: Clear to auscultation. Breath sounds equal bilaterally. No wheezes , rales, or rhonchi. GASTROINTESTINAL: Abdomen soft, non-tender, nondistended. MUSCULOSKELETAL: Extremities without clubbing, cyanosis, or edema. Right knee with some warmth and tenderness. NEUROLOGICAL: Awake and alert. Grossly non focal Psych: cooperative IV line sites with no e.o infection. Assessment & Plan Remarks Sepsis present on admission (leucocytosis, tachycardia and suspected bacteremia/ endocarditis on admission) Gram positive bacteremia: secondary to IVDA Hepatitis C positive. Chest pain ? septic lung emboli. ? Right knee septic arthritis. Acute metabolic encephalopathy on admission resolved. H/o IVDA prior to admission Cocaine, Meth and Heroin etc Recs Discontinue Zosyn IV next line discontinue vancomycin IV Start ceftriaxone IV Follow repeat blood cultures Follow 2 D ECHO (r/o endocarditis) CT chest abdomen pelvis with no evidence of disseminated infection. If 2-D echo negative and repeat blood cultures negative likely discharge on an oral regimen no need for PICC line. Will follow next on May 05, 2017. If any change in clinical condition in the interim please call sooner. Vashti Conrad MD May 03, 2017 16:20
[2017-05-03] MEDS: cefTRIAXone INJ 2,000 MG in SODIUM CHLORIDE 0.9% INJ 100 ML IV SCH (21:17)
[2017-05-03] MEDS ORDERED: VANCOMYCIN 1,500 MG/NS 500 ML IV SCH ×2 (23:00)
[2017-05-04] MEDS: SODIUM CHLOR 0.9% 1000 ML INJ 1,000 ML IV SCH ×3 (01:16→20:48)
[2017-05-04 05:53] VITALS: BP 130/73; PULSE 53; RESP 16; TEMP 97.6; O2SAT 99
[2017-05-04 08:00] VITALS: BP 108/59; PULSE 57; PULSE 73; RESP 16; TEMP 98.6; O2SAT 100
[2017-05-04 10:55] LABS: AUTOMATED NEUTROPHIL # 5.8 TH/MM3 (1.8-7.7); BASOPHIL % 0.3 % (0.0-2.0); EOSINOPHIL # 0.1 TH/MM3 (0-0.4); HEMATOCRIT 38.2 % (39.0-51.0); HEMO FLAGS DIFF FINAL; LYMPH % 20.8 % (9.0-44.0); LYMPHOCYTE # 1.8 TH/MM3 (1.0-4.8); MEAN CELL VOLUME 86.7 FL (80.0-100.0); MEAN CORPUSCULAR HEMOGLOBIN 29.3 PG (27.0-34.0); MEAN CORPUSCULAR HGB CONC 33.8 % (32.0-36.0); MONO % 8.9 % (0.0-8.0); PLATELET COUNT 326 TH/MM3 (150-450); WHITE BLOOD COUNT 8.4 TH/MM3 (4.0-11.0)
[2017-05-04 11:06] LABS: ALT (GPT) 24 U/L (12-78); ANION GAP 2 MEQ/L (5-15); AST (GOT) 16 U/L (15-37); BICARBONATE 32.9 MEQ/L (21.0-32.0); BLOOD UREA NITROGEN 7 MG/DL (7-18); CHLORIDE 105 MEQ/L (98-107); GLOMERULAR FILTRATION RATE 129 ML/MIN (>89); POTASSIUM 3.9 MEQ/L (3.5-5.1); SODIUM (NA) 140 MEQ/L (136-145)
[2017-05-04 11:09] LABS: ALKALINE PHOSPHATASE 72 U/L (45-117); TOTAL BILIRUBIN ADULT 0.2 MG/DL (0.2-1.0)
--- NOTE | 2017-05-04 11:22 | ECHRPT ---
Indication: Acute and subacute endocarditis, unspecified CONCLUSIONS The left ventricular systolic function is normal with an estimated ejection fraction in the range of 55-60%. [id number] mitral valve regurgitation. There is trace tricuspid valve regurgitation. No evidence of endocarditis BP: 110 / 63 HR: 54 Rhythm: MEASUREMENTS (Male / Female) Normal Values Technical Quality:Good 2D ECHO LV Diastolic Diameter PLAX 4.4 cm 4.2 - 5.9 / 3.9 - 5.3 cm LV Systolic Diameter PLAX 3.4 cm IVS Diastolic Thickness 1.1 cm 0.6 - 1.0 / 0.6 - 0.9 cm LVPW Diastolic Thickness 1.0 cm 0.6 - 1.0 / 0.6 - 0.9 cm LV Relative Wall Thickness 0.5 RV Internal Dim ED PLAX 2.0 cm M-MODE Aortic Root Diameter MM 3.0 cm LA Systolic Diameter MM 2.7 cm LA Ao Ratio MM 0.9 AV Cusp Separation MM 2.5 cm DOPPLER LV E' Lateral Velocity 11.4 cm/s LV E' Septal Velocity 12.6 cm/s TR Peak Velocity 281.0 cm/s TR Peak Gradient 31.6 mmHg FINDINGS LEFT VENTRICLE Normal left ventricular size. Wall thickness is measured at the upper limits of normal. The left ventricular systolic function is normal with an estimated ejection fraction in the range of 55-60%. No regional wall motion abnormalities are present. RIGHT VENTRICLE Normal right ventricular size and systolic function. LEFT ATRIUM The left atrial size is normal. RIGHT ATRIUM The right atrial size is normal. ATRIAL SEPTUM The interatrial septum not well visualized. AORTA The aortic root and proximal ascending aorta are normal in size on limited imaging. MITRAL VALVE Structurally normal mitral valve. [id number] mitral valve regurgitation. AORTIC VALVE Trileaflet aortic valve. No aortic valve stenosis or regurgitation. TRICUSPID VALVE Structurally normal tricuspid valve. There is trace tricuspid valve regurgitation. The estimated pulmonary arterial pressure is 31 mmHg. PULMONARY VALVE The pulmonary valve is not well visualized. Trivial pulmonary valve regurgitation. VESSELS The inferior vena cava is normal in size. PERICARDIUM No pericardial effusion. Jet Cazares DO (Electronically Signed) Final Date:04 May 2017 11:21
[2017-05-04 12:00] VITALS: BP 117/69; PULSE 75; RESP 16; TEMP 98; O2SAT 100
--- NOTE | 2017-05-04 14:51 | HHI.PR ---
Subjective Remarks no major overnight events denies cp/sob denies fevers/chills states had diarrhea yesterday but none today stable vital signs afebrile Objective Vitals Vital Signs Date Time Temp Pulse Resp B/P Pulse Ox O2 Delivery O2 Flow Rate FiO2 05/04/17 12:00 98.0 75 16 117/69 100 05/04/17 08:00 98.6 73 16 108/59 100 05/04/17 08:00 57 05/04/17 05:53 97.6 53 16 130/73 99 05/03/17 23:45 97.9 75 16 117/64 98 05/03/17 20:07 98.5 57 16 101/59 98 05/03/17 20:00 55 05/03/17 16:00 98.4 71 20 121/59 98 I/O 05/03/17 05/03/17 05/03/17 05/04/17 05/04/17 05/04/17 07:00 15:00 23:00 07:00 15:00 23:00 Intake Total 360 ml 860 ml 1010 ml 2012 ml Output Total 1150 ml 1600 ml 325 ml 1950 ml Balance -790 ml -740 ml 685 ml 62 ml Intake Oral 360 ml 860 ml 480 ml 960 ml IV Total 530 ml 1052 ml Output Urine Total 1150 ml 1600 ml 325 ml 1950 ml # Bowel Movements 0 1 0 0 Result Diagram: 05/04/17 1033 05/04/17 1033 Imaging Last Impressions Chest CT 05/02/17 0000 Signed Impressions: Service Date/Time: Tuesday, May 02, 2017 10:32 - CONCLUSION: 1. Scattered noncalcified lung nodules. [address] chest recommended. Desmond Walker MD Abdomen/Pelvis CT 05/02/17 0000 Signed Impressions: Service Date/Time: Tuesday, May 02, 2017 10:32 - CONCLUSION: No acute disease. Desmond Walker MD Knee X-Ray 05/01/17 0000 Signed Impressions: Service Date/Time: Monday, May 01, 2017 15:55 - CONCLUSION: Mild effusion. Fredis Watson MD Chest X-Ray 04/30/17 1355 Signed Impressions: Service Date/Time: Sunday, April 30, 2017 14:00 - CONCLUSION: No acute disease. Camden Koch MD Objective Remarks GENERAL: This is a well-nourished, well-developed patient, in no apparent distress. CARDIOVASCULAR: Regular rate and regular rhythm without murmurs, gallops, or rubs. RESPIRATORY: Clear to auscultation. Breath sounds equal bilaterally. No wheezes , rales, or rhonchi. GASTROINTESTINAL: Abdomen soft, non-tender, nondistended. Normal, active bowel sounds MUSCULOSKELETAL: mild swelling of the right knee but no erythema and no warmth to palpation. NEURO: Alert & Oriented x4 to person, place, time, situation. Moves all ext x4 Procedures none Medications and IVs Current Medications Medications (Trade) Dose Ordered Sig/Poonam Route Start Time Stop Time Status Last Admin (NS Flush) 2 ml UNSCH PRN IVF 04/30/17 14:00 Sodium Chloride 2 ml 2 ml UNSCH PRN IVF 04/30/17 15:30 (NS 1000 ml Inj) 1,000 ml @ 100 mls/hr Q10H IV 04/30/17 16:00 05/04/17 10:00 (Zofran Inj) 4 mg Q8HR PRN IV PUSH 04/30/17 16:00 Acetaminophen 650 mg 650 mg Q4H PRN PO 04/30/17 16:00 (Rocephin Inj/NS Inj) 100 ml @ 200 mls/hr Q24H IV 05/03/17 20:00 05/03/17 21:17 A/P Problem List: (1) Sepsis ICD Code: A41.9 Status: Acute Plan: Sepsis present on admission - leukocytosis, tachycardia and suspected bacteremia history of IV drug abuse/ bacteremia with gram positive cocci CT abdomen with no acute abnormality/ CT chest with lung nodules repeated blood cultures from 05/01 negative so far. HIV antibody negative. Echo cardiac exam showed normal systolic function with an EF of 55-60%, trace to mild mitral valve regurgitation, trace tricuspid valve regurgitation, no evidence of endocarditis. Appreciate ID recommendations, continue antibiotics as per ID. The patient currently on Rocephin 2 g IV every 24 hours. Sepsis now resolved with resolved leukocytosis and tachycardia. repeat blood cultures negative x3 - Continue to fu. (2) Chest pain ICD Code: R07.9 Status: Resolved Plan: Cardiac enzymes trended and negative. EKG reviewed by me shows normal sinus rhythm with a ventricular rate of 97 bpm (3) Polysubstance abuse ICD Code: F19.10 Status: Chronic Plan: monitor for withdrawal, no evidence of withdrawal. (4) Lung nodules ICD Code: R91.8 Status: Acute Plan: Will need fu CT in 6 months as outpatient. (5) Hepatitis C antibody positive in blood ICD Code: R76.8 Status: Acute Plan: Will order viral load to confirm. (6) Right knee pain ICD Code: M25.561 Status: Acute Plan: Knee x-ray showed mild effusion. Discussed with Dr. Conrad likely transient hematogenous dissemination. Assessment and Plan DVT Prophylaxis: SCD's, will add Lovenox SQ since patient is under police custody and with handcuffs limiting mobility. Discharge Planning DC Pending ID Clearance. Problem Qualifiers (1) Chest pain: Qualified Code: R07.9 - Chest pain, unspecified type Andrea Rodriguez MD May 04, 2017 14:51
[2017-05-04 16:00] VITALS: BP 113/66; PULSE 72; RESP 16; TEMP 98.7; O2SAT 100
[2017-05-04 20:00] VITALS: BP 125/75; PULSE 49; PULSE 59; RESP 20; TEMP 97.9; O2SAT 97
[2017-05-04] MEDS: cefTRIAXone INJ 2,000 MG in SODIUM CHLORIDE 0.9% INJ 100 ML IV SCH (20:36)
[2017-05-04] MEDS ORDERED: PHARMACY ORDERED LAB ONE (22:45)
[2017-05-05] VITALS: BP 118/71; PULSE 83; RESP 18; TEMP 97.9; O2SAT 97
[2017-05-05] MEDS: SODIUM CHLOR 0.9% 1000 ML INJ 1,000 ML IV SCH ×2 (02:58→15:41)
[2017-05-05 04:00] VITALS: BP 121/73; PULSE 64; RESP 18; TEMP 97.9; O2SAT 100
[2017-05-05 08:00] VITALS: BP 108/62; PULSE 80; RESP 18; TEMP 98.6; O2SAT 100
--- NOTE | 2017-05-05 10:16 | HHI.PR ---
Subjective Remarks This is a pleasant 26 y/o Male with history of Endocarditis, treated at [facility], status post six weeks of IV antibiotics one year back, necrotizing pneumonia and septic large cavitary lesions during that admission. Patient reports ongoing use of IV heroin, cocaine and some other synthetic drugs. came to ER with chills and night sweats, here followed by ID specialist for gram positive bacteremia. stable in his bedroom seen in the presence of [employer] Supervisor Mr. Raines, as per patient no nausea, vomit or diarrhea. Objective Vital Signs Date Time Temp Pulse Resp B/P Pulse Ox O2 Delivery O2 Flow Rate FiO2 05/05/17 08:00 98.6 80 18 108/62 100 05/05/17 04:00 97.9 64 18 121/73 100 05/05/17 00:00 97.9 83 18 118/71 97 05/04/17 20:00 59 05/04/17 20:00 97.9 49 20 125/75 97 05/04/17 16:00 98.7 72 16 113/66 100 05/04/17 12:00 98.0 75 16 117/69 100 I/O 05/04/17 05/04/17 05/04/17 05/05/17 05/05/17 05/05/17 07:00 15:00 23:00 07:00 15:00 23:00 Intake Total 2012 ml 917 ml 1689 ml Output Total 1950 ml 1800 ml 2000 ml 1600 ml Balance 62 ml -883 ml -2000 ml 89 ml Intake Oral 960 ml 420 ml 240 ml IV Total 1052 ml 497 ml 1449 ml Output Urine Total 1950 ml 1800 ml 2000 ml 1600 ml # Bowel Movements 0 1 Result Diagram: 05/04/17 1033 05/04/17 1033 Imaging Last Impressions Chest CT 05/02/17 0000 Signed Impressions: Service Date/Time: Tuesday, May 02, 2017 10:32 - CONCLUSION: 1. Scattered noncalcified lung nodules. [address] chest recommended. Desmond Walker MD Abdomen/Pelvis CT 05/02/17 0000 Signed Impressions: Service Date/Time: Tuesday, May 02, 2017 10:32 - CONCLUSION: No acute disease. Desmond Walker MD Knee X-Ray 05/01/17 0000 Signed Impressions: Service Date/Time: Monday, May 01, 2017 15:55 - CONCLUSION: Mild effusion. Fredis Watson MD Chest X-Ray 04/30/17 1294 Signed Impressions: Service Date/Time: Sunday, April 30, 2017 14:00 - CONCLUSION: No acute disease. Camden Koch MD Procedures None Other Results Laboratory Tests Test 05/01/17 05/01/17 05/03/17 05/04/17 02:42 15:36 14:15 10:33 Troponin I LESS THAN 0.02 NG/ML C-Reactive Protein 2.50 MG/DL Hepatitis A IgM Antibody NEGATIVE Hepatitis B Surface Antigen NEGATIVE Hepatitis B Core IgM Antibody NEGATIVE Hepatitis C Antibody REACTIVE HIV (1&2) Antibody NEGATIVE Vancomycin Level Trough 11.3 MCG/ML White Blood Count 8.4 TH/MM3 Red Blood Count 4.40 MIL/MM3 Hemoglobin 12.9 GM/DL Hematocrit 38.2 % Mean Corpuscular Volume 86.7 FL Mean Corpuscular Hemoglobin 29.3 PG Mean Corpuscular Hemoglobin 33.8 % Concent Red Cell Distribution Width 13.0 % Platelet Count 326 TH/MM3 Mean Platelet Volume 7.4 FL Neutrophils (%) (Auto) 69.0 % Lymphocytes (%) (Auto) 20.8 % Monocytes (%) (Auto) 8.9 % Eosinophils (%) (Auto) 1.0 % Basophils (%) (Auto) 0.3 % Neutrophils # (Auto) 5.8 TH/MM3 Lymphocytes # (Auto) 1.8 TH/MM3 Monocytes # (Auto) 0.8 TH/MM3 Eosinophils # (Auto) 0.1 TH/MM3 Basophils # (Auto) 0.0 TH/MM3 CBC Comment DIFF FINAL Differential Comment Sodium Level 140 MEQ/L Potassium Level 3.9 MEQ/L Chloride Level 105 MEQ/L Carbon Dioxide Level 32.9 MEQ/L Anion Gap 2 MEQ/L Blood Urea Nitrogen 7 MG/DL Creatinine 0.73 MG/DL Estimat Glomerular Filtration 129 ML/MIN Rate Random Glucose 86 MG/DL Calcium Level 9.0 MG/DL Phosphorus Level 2.0 MG/DL Magnesium Level 2.0 MG/DL Total Bilirubin 0.2 MG/DL Aspartate Amino Transf 16 U/L (AST/SGOT) Alanine Aminotransferase 24 U/L (ALT/SGPT) Alkaline Phosphatase 72 U/L Total Protein 7.9 GM/DL Albumin 3.0 GM/DL Objective Remarks GENERAL: This is a well-nourished, well-developed patient, in no apparent distress. CARDIOVASCULAR: Regular rate and regular rhythm without murmurs, gallops, or rubs. RESPIRATORY: Clear to auscultation. Breath sounds equal bilaterally. No wheezes , rales, or rhonchi. GASTROINTESTINAL: Abdomen soft, non-tender, nondistended. Normal, active bowel sounds MUSCULOSKELETAL: mild swelling of the right knee but no erythema and no warmth to palpation. NEURO: Alert & Oriented x4 to person, place, time, situation. Moves all ext x4 Medications and IVs Current Medications Medications (Trade) Dose Ordered Sig/Poonam Route Start Time Stop Time Status Last Admin (NS Flush) 2 ml UNSCH PRN IVF 04/30/17 14:00 Sodium Chloride 2 ml 2 ml UNSCH PRN IVF 04/30/17 15:30 (NS 1000 ml Inj) 1,000 ml @ 100 mls/hr Q10H IV 04/30/17 16:00 05/05/17 02:58 (Zofran Inj) 4 mg Q8HR PRN IV PUSH 04/30/17 16:00 Acetaminophen 650 mg 650 mg Q4H PRN PO 04/30/17 16:00 (Rocephin Inj/NS Inj) 100 ml @ 200 mls/hr Q24H IV 05/03/17 20:00 05/04/17 20:36 A/P Assessment and Plan 1. Sepsis present on admission - leukocytosis, tachycardia and suspected bacteremia history of IV drug abuse/ bacteremia with gram positive cocci CT abdomen with no acute abnormality/ CT chest with lung nodules repeated blood cultures from 05/01 negative so far. HIV antibody negative. Echo cardiac exam showed normal systolic function with an EF of 55-60%, trace to mild mitral valve regurgitation, trace tricuspid valve regurgitation, no evidence of endocarditis. Appreciate ID recommendations, continue antibiotics as per ID. The patient currently on Rocephin 2 g IV every 24 hours. Sepsis now resolved with resolved leukocytosis and tachycardia. repeat blood cultures negative x3 - Continue to fu. awaiting final recommendations by ID specialist for discharge. 2. Chest pain resolved, Cardiac enzymes trend is negative, ECG sinus rhythm 3. Polysubstance abuse strongly recommended to stop behavior. 4. Lung nodules will need follow up CT in six months as outpatient 5. Hepatitis C antibody positive in blood Assessment and Plan DVT Prophylaxis: SCD's, will add Lovenox SQ since patient is under police custody and with handcuffs limiting mobility. Discharge Planning Expected later today. Souleymane Brizuela MD May 05, 2017 10:16 ICD Code: R76.8 Status: Acute Plan: Will order viral load to confirm. (6) Right knee pain ICD Code: M25.561 Status: Acute Plan: Knee x-ray showed mild effusion. Discussed with Dr. Conrad likely transient hematogenous dissemination. Assessment and Plan DVT Prophylaxis: SCD's, will add Lovenox SQ since patient is under police custody and with handcuffs limiting mobility. Discharge Planning DC Pending ID Clearance. Souleymane Brizuela MD May 05, 2017 10:16
[2017-05-05 12:00] VITALS: BP_SYST 111; BP_SYST 125; BP_DIAS 58; BP_DIAS 64; PULSE 74; PULSE 88; RESP 18; TEMP 98.2; TEMP 98.7; O2SAT 98; O2SAT 99
[2017-05-05] MEDS ORDERED: LEVA750T9 PO (15:04)
--- NOTE | 2017-05-05 15:22 | HHI.PR ---
Addendum to Inpatient Note Addendum Reason: Additional Documentation Additional Information Patient being [facility] to [facility]. RN confirmed the scripts will be faxed to the [facility] Nurse. Changed to oral Levaquin (stop date in [facility]) Will sign off please call back if any change in clinical condition or questions. Vashti Conrad MD May 05, 2017 15:22
[2017-05-05] MEDS ORDERED: LEVOFLOXACIN 750 MG TAB PO SCH (16:00)
--- NOTE | 2017-05-05 16:12 | HHI.DS ---
Discharge Summary Admission Date Apr 30, 2017 at 15:57 Discharge Date: May 05, 2017 Admitting Diagnosis chest pain (1) Sepsis ICD Code: A41.9 Diagnosis: Principal (2) Polysubstance abuse ICD Code: F19.10 Diagnosis: Principal (3) Lung nodules ICD Code: R91.8 Diagnosis: Principal (4) Hepatitis C antibody positive in blood ICD Code: R76.8 Diagnosis: Principal Procedures none Brief History - From Admission patient is a 26 y/o male who was brought to ER with chest pain. reportedly he injected heroin and snorted crack earlier and started to have some chest pain. he's currently under arrest. he was somewhat lethargic at the time of my evaluation although arousable. he denies any chest pain at this time. information was limited due to his mental condition. CBC/BMP: 05/04/17 1033 05/04/17 1033 Significant Findings Laboratory Tests Test 05/03/17 05/04/17 14:15 10:33 Vancomycin Level Trough 11.3 MCG/ML (5.0-10.0) Red Blood Count 4.40 MIL/MM3 (4.50-5.90) Hemoglobin 12.9 GM/DL (13.0-17.0) Hematocrit 38.2 % (39.0-51.0) Monocytes (%) (Auto) 8.9 % (0.0-8.0) Carbon Dioxide Level 32.9 MEQ/L (21.0-32.0) Anion Gap 2 MEQ/L (5-15) Phosphorus Level 2.0 MG/DL (2.5-4.9) Albumin 3.0 GM/DL (3.4-5.0) Imaging Last Impressions Chest CT 05/02/17 0000 Signed Impressions: Service Date/Time: Tuesday, May 02, 2017 10:32 - CONCLUSION: 1. Scattered noncalcified lung nodules. [address] chest recommended. Desmond Walker MD Abdomen/Pelvis CT 05/02/17 0000 Signed Impressions: Service Date/Time: Tuesday, May 02, 2017 10:32 - CONCLUSION: No acute disease. Desmond Walker MD Knee X-Ray 05/01/17 0000 Signed Impressions: Service Date/Time: Monday, May 01, 2017 15:55 - CONCLUSION: Mild effusion. Fredis Watson MD Chest X-Ray 04/30/17 1355 Signed Impressions: Service Date/Time: Sunday, April 30, 2017 14:00 - CONCLUSION: No acute disease. Camden Koch MD PE at Discharge GENERAL: This is a well-nourished, well-developed patient, in no apparent distress. CARDIOVASCULAR: Regular rate and regular rhythm without murmurs, gallops, or rubs. RESPIRATORY: Clear to auscultation. Breath sounds equal bilaterally. No wheezes , rales, or rhonchi. GASTROINTESTINAL: Abdomen soft, non-tender, nondistended. Normal, active bowel sounds MUSCULOSKELETAL: mild swelling of the right knee but no erythema and no warmth to palpation. NEURO: Alert & Oriented x4 to person, place, time, situation. Moves all ext x4 Hospital Course This is a pleasant 26 y/o Male with history of Endocarditis, treated at [facility], status post six weeks of IV antibiotics one year back, necrotizing pneumonia and septic large cavitary lesions during that admission. Patient reports ongoing use of IV heroin, cocaine and some other synthetic drugs. came to ER with chills and night sweats, here followed by ID specialist for gram positive bacteremia. stable in his bedroom seen in the presence of Histological Illustrator Mr. Raines, as per patient no nausea, vomit or diarrhea. Assessment and Plan 1. Sepsis present on admission history of IV drug abuse/ bacteremia with gram positive cocci CT abdomen with no acute abnormality/ CT chest with lung nodules, no evidence of disseminated infection, repeated blood cultures from 05/01 negative so far. HIV antibody negative. Echo cardiac exam showed normal systolic function with an EF of 55-60%, trace to mild mitral valve regurgitation, trace tricuspid valve regurgitation, no evidence of endocarditis. Appreciate ID recommendations, continue antibiotics as per ID. The patient currently on Rocephin 2 g IV every 24 hours. today recommended to discharge home on Levaquin 750 mg daily for 21 days. Sepsis now resolved with resolved leukocytosis and tachycardia. repeat blood cultures negative x3 - Continue to fu. awaiting final recommendations by ID specialist for discharge. 2. Chest pain resolved, Cardiac enzymes trend is negative, ECG sinus rhythm 3. Polysubstance abuse strongly recommended to stop behavior. 4. Lung nodules will need follow up CT in six months as outpatient 5. Hepatitis C antibody positive in blood Assessment and Plan DVT Prophylaxis: SCD's, will add Lovenox SQ since patient is under police custody and with handcuffs limiting mobility. Discharge Planning Discussed with ID specialist doctor Anamaria recommended for discharge at this time. continue Levaquin 750 mg daily for 21 days. Pt Condition on Discharge: Good Discharge Disposition: Discharge Home Discharge Time: > 30 minutes Discharge Instructions DIET: Follow Instructions for: As Tolerated, No Restrictions Activities you can perform: Regular-No Restrictions Souleymane Brizuela MD May 05, 2017 16:12 Discharge Instructions DIET: Follow Instructions for: As Tolerated, No Restrictions Activities you can perform: Regular-No Restrictions Souleymane Brizuela MD May 05, 2017 16:12
== END 2017-05-05 18:10 | DRG 871 ==
LOC: NEPE 12:43 → NEDA 15:57 → N04A 19:51
PROVIDERS: ADMIT Internal Medicine; ATTEND Internal Medicine
DX: A41.9 Sepsis, unspecified organism (principal); G93.41 Metabolic encephalopathy; N17.9 Acute kidney failure, unspecified; F19.10 Other psychoactive substance abuse, uncomplicated; R91.8 Other nonspecific abnormal finding of lung field; R76.8 Other specified abnormal immunological findings in serum; F17.210 Nicotine dependence, cigarettes, uncomplicated
CPT/HCPCS: 71010; 71260; 73560; 74177; 80048; 80053; 80074; 80202; 80307; 81001; 82550; 82552; 82565; 83605; 83735; 84100; 84484; 85025; 85610; 85652; 85730; 86140; 86403; 86703; 87040; 87186; 87205; 93005; 93306; 96360; J0696; J2543; J3370; J7030; J7050; Q9963; Q9967

== ENCOUNTER 2017-05-31 12:31 | Emergency (ER) | payer SELFPAY ==
[~2017-05-31] VITALS: Ht 172.7 cm; Wt 75.0 kg
[~2017-05-31 12:31] MED LIST: LEVA750T9 PO
[2017-05-31 12:45] VITALS: O2SAT 100
[2017-05-31 12:47] VITALS: BP 143/78; PULSE 118; RESP 16; TEMP 98.9; O2SAT 99
[2017-05-31] MEDS ORDERED: SODIUM CHLORID 0.9% 500 ML INJ 500 ML IV ONE (13:00)
[2017-05-31] MEDS ORDERED: LORazepam 2 MG/ML VIAL IM ONE (13:00)
--- NOTE | 2017-05-31 13:05 | PD ---
HPI Chief Complaint: tachycardia Time Seen by Provider: 13:01 Travel History International Travel<30 days: No Contact w/Intl Traveler<30days: No History of Present Illness HPI 26-year-old male with history of polysubstance abuse presents to the emergency department by EMS for evaluation of tachycardia and anxiety. Patient reports while eating at [employer] he felt as if his heart was "racing". He admits to smoking and snorting methamphetamines prior to this episode. He has a long- standing history of methamphetamine abuse. He denies chest pain, shortness of breath, fever or chills. His heart rate en route was between 120 and 140s. Upon arrival to the ED he is tachycardic in the 120s. PFSH Past Medical History Narrative Medical Polysubstance abuse Hx Anticoagulant Therapy: No Cardiovascular Problems: No Chemotherapy: No Cerebrovascular Accident: No Diabetes: No Diminished Hearing: No Genitourinary: No Musculoskeletal: No Neurologic: No Reproductive: No Respiratory: No Past Surgical History Other Surgery: Yes (CYST REMOVAL ) Social History Alcohol Use: Yes (RARE) Tobacco Use: Yes (1PPD) Substance Use: Yes (COCAINE, DILAUDID, METH, HEROIN) Allergies-Medications (Allergen,Severity, Reaction): Coded Allergies: No Known Allergies (Unverified , 03/29/17) Reported Meds & Prescriptions Reported Meds & Active Scripts Active Review of Systems Except as stated in HPI: all other systems reviewed are Neg General / Constitutional: No: Fever Eyes: No: Visual changes HENT: No: Headaches Cardiovascular: Positive: Tachycardia Respiratory: No: Shortness of Breath Gastrointestinal: No: Abdominal Pain Genitourinary: No: Dysuria Physical Exam Narrative GENERAL: Alert well-appearing male. Sitting on stretcher eating a sandwich. SKIN: Focused skin assessment warm/dry. HEAD: Atraumatic. Normocephalic. EYES: Pupils equal and dilated bilaterally. No scleral icterus. No injection or drainage. ENT: No nasal bleeding or discharge. Mucous membranes pink and moist. NECK: Trachea midline. No JVD. CARDIOVASCULAR: Mildly tachycardic rate 100 to 120s. Regular rate and rhythm. No murmur appreciated. RESPIRATORY: No accessory muscle use. Clear to auscultation. Breath sounds equal bilaterally. GASTROINTESTINAL: Abdomen soft, non-tender, nondistended. Hepatic and splenic margins not palpable. MUSCULOSKELETAL: No obvious deformities. No clubbing. No cyanosis. No edema. NEUROLOGICAL: Awake and alert. No obvious cranial nerve deficits. Motor grossly within normal limits. Normal speech. PSYCHIATRIC: Appropriate mood and affect; insight and judgment normal. Data Data Last Documented VS Vital Signs Date Time Temp Pulse Resp B/P Pulse Ox O2 Delivery O2 Flow Rate FiO2 06/01/17 06:10 71 16 121/68 97 Room Air 05/31/17 12:47 98.9 Orders Lorazepam Inj (Ativan Inj) (05/31/17 13:00) Electrocardiogram (05/31/17 12:58) Basic Metabolic Panel (Bmp) (05/31/17 12:58) Complete Blood Count With Diff (05/31/17 12:58) Ecg Monitoring (05/31/17 12:58) Bilateral Bp Monitoring (05/31/17 12:58) Iv Access Insert/Monitor (05/31/17 12:58) Oximetry (05/31/17 12:58) Sodium Chlorid 0.9% 500 Ml Inj (Ns 500 M (05/31/17 13:00) Drug Screen, Random Urine (05/31/17 13:01) Lorazepam Inj (Ativan Inj) (05/31/17 13:45) Diet Regular Basic (05/31/17 Dinner) Diet Regular Basic (06/01/17 Breakfast) Labs Laboratory Tests Test 05/31/17 05/31/17 13:00 13:15 Urine Opiates Screen POS Urine Barbiturates Screen NEG Urine Amphetamines Screen POS Urine Benzodiazepines Screen NEG Urine Cocaine Screen POS Urine Cannabinoids Screen POS White Blood Count 14.1 TH/MM3 Red Blood Count 4.40 MIL/MM3 Hemoglobin 12.9 GM/DL Hematocrit 38.7 % Mean Corpuscular Volume 88.1 FL Mean Corpuscular Hemoglobin 29.3 PG Mean Corpuscular Hemoglobin 33.2 % Concent Red Cell Distribution Width 13.9 % Platelet Count 243 TH/MM3 Mean Platelet Volume 7.7 FL Neutrophils (%) (Auto) 68.4 % Lymphocytes (%) (Auto) 18.7 % Monocytes (%) (Auto) 9.0 % Eosinophils (%) (Auto) 3.3 % Basophils (%) (Auto) 0.6 % Neutrophils # (Auto) 9.7 TH/MM3 Lymphocytes # (Auto) 2.6 TH/MM3 Monocytes # (Auto) 1.3 TH/MM3 Eosinophils # (Auto) 0.5 TH/MM3 Basophils # (Auto) 0.1 TH/MM3 CBC Comment DIFF FINAL Differential Comment Sodium Level 141 MEQ/L Potassium Level 3.7 MEQ/L Chloride Level 105 MEQ/L Carbon Dioxide Level 24.7 MEQ/L Anion Gap 11 MEQ/L Blood Urea Nitrogen 19 MG/DL Creatinine 1.08 MG/DL Estimat Glomerular Filtration 82 ML/MIN Rate Random Glucose 83 MG/DL Calcium Level 8.8 MG/DL [facility] Medical Decision Making Medical Screen Exam Complete: Yes Emergency Medical Condition: Yes Differential Diagnosis Poly-substance abuse, electrolyte abnormality, dehydration Narrative Course 26-year-old male brought in by EMS for evaluation of tachycardia. Patient reports to smoking and snorting methamphetamines today. Patient has history of polysubstance abuse. He denies chest pain, shortness breath, fever or chills. Upon arrival patient's heart rate was sinus tach in the 110s to 120s. IV access established blood work ordered and pending, 1 L normal saline administered, 1 mg of Ativan IV administered. EKG: Sinus tachycardia. Rate 113. No ST or T-wave abnormalities. Normal axis. Reviewed with Dr. Mays CBC: Leukocytosis WBC 14 BMP unremarkable Tox screen positive for benzos, opiates, amphetamines The patient has mild leukocytosis he has no other clinical signs of bacteremia. He is afebrile. His tachycardia is likely elevated due to methamphetamine ingestion. 1540: heart rate 74 patient resting comfortably on stretcher. Once patient is ambulatory with steady gait he will be discharge. Diagnosis Primary Impression: Drug abuse Additional Impression: Tachycardia Referrals: [facility] Additional Instructions: Stop using methamphetamine. You were given information for [facility] for substance abuse treatment Follow-up with her primary care doctor. Return to the emergency department if he developed new or worsening symptoms. Disposition: 01 DISCHARGE HOME Condition: Stable KenpaulinaHallie ENNIS May 31, 2017 13:05
[2017-05-31 13:40] LABS: AUTOMATED NEUTROPHIL # 9.7 TH/MM3 (1.8-7.7); BASOPHIL # 0.1 TH/MM3 (0-0.2); BASOPHIL % 0.6 % (0.0-2.0); EOSINOPHIL # 0.5 TH/MM3 (0-0.4); EOSINOPHIL % 3.3 % (0.0-4.0); HEMATOCRIT 38.7 % (39.0-51.0); HEMO FLAGS DIFF FINAL; LYMPH % 18.7 % (9.0-44.0); LYMPHOCYTE # 2.6 TH/MM3 (1.0-4.8); MEAN CELL VOLUME 88.1 FL (80.0-100.0); MEAN CORPUSCULAR HEMOGLOBIN 29.3 PG (27.0-34.0); MEAN CORPUSCULAR HGB CONC 33.2 % (32.0-36.0); NEUT % 68.4 % (16.0-70.0); PLATELET COUNT 243 TH/MM3 (150-450); RED CELL DISTRIBUTION WIDTH 13.9 % (11.6-17.2); WHITE BLOOD COUNT 14.1 TH/MM3 (4.0-11.0)
[2017-05-31] MEDS ORDERED: LORazepam 2 MG/ML VIAL IV PUSH ONE (13:45)
[2017-05-31 13:47] LABS: AMPHETAMINE, URINE POS (NEG); BARBITURATES, URINE NEG (NEG); COCAINE, URINE POS (NEG)
[2017-05-31 13:56] LABS: BICARBONATE 24.7 MEQ/L (21.0-32.0); POTASSIUM 3.7 MEQ/L (3.5-5.1)
[2017-05-31 14:00] VITALS: BP 132/78; PULSE 101; RESP 16; O2SAT 100
[2017-05-31 19:37] VITALS: BP 122/73; PULSE 75; RESP 16; O2SAT 98
[2017-05-31 22:33] VITALS: BP 118/68; PULSE 85; RESP 16; O2SAT 98
[2017-06-01 06:10] VITALS: BP 121/68; PULSE 71; RESP 16; O2SAT 97
--- NOTE | 2017-06-01 15:14 | EKG ---
Date Performed: 05/31/2017 Time Performed: 13:46:41 PTAGE: 26 years EKG: Sinus tachycardia NONSPECIFIC T-WAVE ABNORMALITY ABNORMAL RHYTHM ECG PREVIOUS TRACING : 04/30/2017 14.01 Otherwise no significant change. DOCTOR: Madhu Vanessa Interpretating Date/Time 06/01/2017 15:12:29
== END 2017-06-01 16:06 | disposition home or self-care (01) ==
LOC: NEPD 12:31
DX: F15.10 Other stimulant abuse, uncomplicated (principal); R00.0 Tachycardia, unspecified
CPT/HCPCS: 80048; 80307; 85025; 93005; 96361; 96372; 96374; 99284; J2060; J7040